=== PATIENT | female | born 1950 | race African-American/Black ===

== ENCOUNTER 2016-07-13 14:33 | Outpatient (CLI) | payer MEDICARE, MEDICAID ==
[2016-07-13 15:14] LABS: #Eosinphils 0.2 thou/uL (0.0-0.7); #Lymphocytes 1.2 thou/uL (1.20-3.40); #Monocytes 0.5 thou/uL (0.11-0.59); #Neutrophils 4.4 thou/uL (1.40-6.50); %Basophils 0.7 % (0.0-1.0); %Eosinophils 2.5 % (0.0-10.0); %Lymphocytes 19.4 % (21.0-51.0); %Monocytes 8.1 % (0.0-10.0); %Neutrophils 69.2 % (42.0-75.0); Mean Corpuscular HGB CONC 31.4 g/dL (32.0-36.0); Mean Corpuscular Hemoglobin 27.1 pg (27.0-31.0); Mean Corpuscular Volume 86.3 fl (81.0-99.0); Mean Platelet Volume 7.6 fL (7.4-10.4); Platelet Count 225 thou/uL (130-400); Red Blood Cell (RBC) Count 4.41 mill/uL (4.20-5.40); White Blood Cell (WBC) Count 6.3 thou/uL (4.8-10.8)
[2016-07-13 15:29] LABS: ALT (SGPT) 17 U/L (0-55); AST (SGOT) 19 U/L (5-34); Albumin 3.2 g/dL (3.4-4.8); Alkaline Phosphatase 109 U/L (40-150); Anion Gap 17 mmol/L (10-20); BUN (Urea Nitrogen) 16 mg/dL (9.8-20.1); Bilirubin, Total 0.3 mg/dL (0.2-1.2); Calc. Creatinine Clearance 0 mL/min (70-130); Calcium 8.8 mg/dL (7.8-10.44); Carbon Dioxide 26 mmol/L (23-31); Chloride 105 mmol/L (98-107); Estimated GFR-MDRD 52; Globulin 3.2 g/dL (2.4-3.5); Glucose 130 mg/dL (80-115); Potassium 3.9 mmol/L (3.5-5.1); Protein, Total 6.4 g/dL (5.8-8.1); Sodium 144 mmol/L (136-145)
[2016-07-14 18:26] LABS: Iron 57 ug/dL (50-170); Iron Binding Capacity, Total 184 mcg/dL (265-497); LDH 181 U/L (125-220)
[2016-07-14 18:28] LABS: Reticulocyte Count 1.1 % (0.5-1.5)
== END 2016-07-13 14:34 | disposition home or self-care (01) ==
LOC: MADLAB 14:33
PROVIDERS: ATTEND Internal Medicine Hematology & Oncology
DX: I11.0 Hypertensive heart disease with heart failure (principal); I50.9 Heart failure, unspecified; E66.9 Obesity, unspecified; M54.9 Dorsalgia, unspecified; M17.0 Bilateral primary osteoarthritis of knee; Z79.01 Long term (current) use of anticoagulants
CPT/HCPCS: 36415; 80053; 82607; 82728; 83540; 83550; 83615; 85025; 85046

== ENCOUNTER 2018-06-25 12:16 | Emergency (ER) | payer MEDICARE, MEDICAID ==
[2018-06-25] MEDS ORDERED: Oxymetazoline HCl 0.05% ( 15 ML ) ONE (12:27)
[2018-06-25 13:00] LABS: INR-International Normal Ratio 2.3; Prothrombin Time 25.4 SEC (12.0-14.7)
[2018-06-25 13:05] LABS: #Basophils 0.1 thou/uL (0.0-0.2); #Eosinphils 0.2 thou/uL (0.0-0.7); #Lymphocytes 1.3 thou/uL (1.20-3.40); #Monocytes 0.5 thou/uL (0.11-0.59); %Basophils 0.9 % (0.0-1.0); %Eosinophils 2.7 % (0.0-10.0); %Lymphocytes 16.4 % (21.0-51.0); %Monocytes 5.8 % (0.0-10.0); %Neutrophils 74.3 % (42.0-75.0); Hemoglobin 11.7 g/dL (12.0-16.0); Mean Corpuscular HGB CONC 31.9 g/dL (32.0-36.0); Mean Corpuscular Hemoglobin 28.4 pg (27.0-31.0); Mean Platelet Volume 7.8 fL (7.4-10.4); Platelet Count 274 thou/uL (130-400); RBC Distribution Width 13.5 % (11.5-14.5); Red Blood Cell (RBC) Count 4.11 mill/uL (4.20-5.40); White Blood Cell (WBC) Count 8.1 thou/uL (4.8-10.8)
[2018-06-25 13:10] LABS: ALT (SGPT) 13 U/L (8-55); AST (SGOT) 18 U/L (5-34); Albumin 3.5 g/dL (3.4-4.8); Alkaline Phosphatase 100 U/L (40-150); Anion Gap 14 mmol/L (10-20); BUN (Urea Nitrogen) 23 mg/dL (9.8-20.1); Bilirubin, Total 0.3 mg/dL (0.2-1.2); Calc. Creatinine Clearance 0 mL/min (70-130); Calcium 9.5 mg/dL (7.8-10.44); Carbon Dioxide 29 mmol/L (23-31); Estimated GFR-MDRD 39; Globulin 3.9 g/dL (2.4-3.5); Glucose 127 mg/dL (80-115); Protein, Total 7.4 g/dL (6.0-8.3)
[2018-06-25 13:23] LABS: Chloride 105 mmol/L (98-107); Potassium 3.8 mmol/L (3.5-5.1); Sodium 144 mmol/L (136-145)
--- NOTE | 2018-06-25 14:25 | RAD ---
AP CHEST: HISTORY: Dyspnea. FINDINGS: Lung castellon appear clear. No infiltrate identified. Heart and mediastinum unremarkable considering this projection. Soft tissue attenuation limits the exam. IMPRESSION: No acute abnormality identified. POS: [facility]
[2018-06-25 15:06] LABS: CKMB 2.2 ng/mL (0-6.6)
== END 2018-06-25 14:55 | disposition home or self-care (01) ==
LOC: MADERS 12:16
DX: R04.0 Epistaxis (principal); D68.9 Coagulation defect, unspecified; I50.9 Heart failure, unspecified; I11.0 Hypertensive heart disease with heart failure; K21.9 Gastro-esophageal reflux disease without esophagitis; Z79.891 Long term (current) use of opiate analgesic; Z79.899 Other long term (current) drug therapy; Z79.01 Long term (current) use of anticoagulants; Z86.718 Personal history of other venous thrombosis and embolism
CPT/HCPCS: 71045; 80053; 82553; 83880; 84484; 85025; 85610; 93005

== ENCOUNTER 2020-10-15 15:40 | Emergency (ER) | payer MEDICARE, MEDICAID ==
[2020-10-15 16:53] LABS: #Eosinphils 0.3 thou/uL (0.0-0.7); #Lymphocytes 1.6 thou/uL (1.20-3.40); #Monocytes 0.7 thou/uL (0.11-0.59); #Neutrophils 5.9 thou/uL (1.40-6.50); %Basophils 0.6 % (0.0-1.0); %Eosinophils 3.1 % (0.0-10.0); %Lymphocytes 18.4 % (21.0-51.0); %Monocytes 8.7 % (0.0-10.0); %Neutrophils 69.2 % (42.0-75.0); Hemoglobin 12.4 g/dL (12.0-16.0); Mean Corpuscular HGB CONC 30.5 g/dL (32.0-36.0); Mean Corpuscular Hemoglobin 28.1 pg (27.0-31.0); Mean Corpuscular Volume 92.1 fL (78.0-98.0); Mean Platelet Volume 7.4 fL (7.4-10.4); Platelet Count 274 thou/uL (130-400); RBC Distribution Width 14.1 % (11.5-14.5); Red Blood Cell (RBC) Count 4.41 mill/uL (4.20-5.40); White Blood Cell (WBC) Count 8.4 thou/uL (4.8-10.8)
[2020-10-15 17:09] LABS: ALT (SGPT) 15 U/L (8-55); AST (SGOT) 20 U/L (5-34); Albumin 3.7 g/dL (3.4-4.8); Alkaline Phosphatase 117 U/L (40-110); Anion Gap 15 mmol/L (10-20); BUN (Urea Nitrogen) 18 mg/dL (9.8-20.1); Bilirubin, Total 0.4 mg/dL (0.2-1.2); Calc. Creatinine Clearance 0 mL/min (70-130); Calcium 9.1 mg/dL (7.8-10.44); Carbon Dioxide 27 mmol/L (23-31); Chloride 105 mmol/L (98-107); Globulin 3.3 g/dL (2.4-3.5); Glucose 113 mg/dL (80-115); Potassium 3.2 mmol/L (3.5-5.1); Sodium 144 mmol/L (136-145)
== END 2020-10-15 18:16 | disposition short-term general hospital (02) ==
LOC: MADERS 15:40
DX: I82.621 Acute embolism and thrombosis of deep veins of right upper extremity (principal); I11.0 Hypertensive heart disease with heart failure; I50.9 Heart failure, unspecified; K21.9 Gastro-esophageal reflux disease without esophagitis; Z87.19 Personal history of other diseases of the digestive system; Z79.01 Long term (current) use of anticoagulants; Z79.899 Other long term (current) drug therapy; Z79.891 Long term (current) use of opiate analgesic; Z86.73 Personal history of transient ischemic attack (TIA), and cerebral infarction without residual deficits
CPT/HCPCS: 36415; 71045; 80053; 85025; 85379

== ENCOUNTER 2021-02-10 19:09 | Emergency (ER) | payer MEDICARE, MEDICAID | END 2021-02-10 22:26 | disposition home or self-care (01) | LOC: MADERS 19:09 | DX: S81.812A Laceration without foreign body, left lower leg, initial encounter (principal); R60.0 Localized edema; I11.0 Hypertensive heart disease with heart failure; I50.9 Heart failure, unspecified; E03.9 Hypothyroidism, unspecified; K21.9 Gastro-esophageal reflux disease without esophagitis; E78.5 Hyperlipidemia, unspecified; E78.00 Pure hypercholesterolemia, unspecified; M10.9 Gout, unspecified; Z86.73 Personal history of transient ischemic attack (TIA), and cerebral infarction without residual deficits; Z86.718 Personal history of other venous thrombosis and embolism; Z86.711 Personal history of pulmonary embolism; W22.8XXA Striking against or struck by other objects, initial encounter | CPT/HCPCS: 12001 ==